=== PATIENT | female | born 1990 | race African-American/Black ===

== ENCOUNTER 2024-09-04 01:03 | Emergency (ER) | payer OTHER ==
[2024-09-04] MEDS ORDERED: Ketorolac Tromethamine 30 MG (1 mL) VIAL ONE (01:53)
== END 2024-09-04 02:20 | disposition home or self-care (01) ==
LOC: CSHERS 01:03
DX: R10.2 Pelvic and perineal pain (principal)
CPT/HCPCS: 96372; 99283; J1885